=== PATIENT | female | born 1960 | race American Indian/Alaskan Native ===

== ENCOUNTER 2017-08-19 12:29 | Outpatient (CLI) | payer BC ==
--- NOTE | 2017-08-20 09:19 | XRay Report ---
XRAY BILATERAL KNEE THREE VIEWS EACH: 08/19/17 12:29:00 CLINICAL: Bilateral knee pain. FINDINGS: Note that PA rather than AP standing views were performed and I have reversed the left right orientation for viewing. Right: No fracture or dislocation. The medial and lateral joint spaces are normal. Tiny patellofemoral osteophytes. A quadriceps insertion enthesophyte. No joint effusion. Normal soft tissues. Left: No fracture or dislocation. Mild medial joint space narrowing with early osteophyte formation. A small anterior patellofemoral osteophyte. A small quadriceps insertion enthesophyte. No joint effusion.Normal soft tissues. IMPRESSION: Very mild bilateral osteoarthritis. Bilateral quadriceps enthesopathy.
== END 2017-08-19 12:30 | disposition home or self-care (01) ==
LOC: SPVIMAG 12:29
PROVIDERS: ATTEND Orthopaedic Surgery
DX: M17.0 Bilateral primary osteoarthritis of knee (principal); M76.892 Other specified enthesopathies of left lower limb, excluding foot; M76.891 Other specified enthesopathies of right lower limb, excluding foot